=== PATIENT | male | born 1965 | race Caucasian/White ===

== ENCOUNTER 2023-05-29 13:16 | Emergency (ER) | payer OTHER, SELFPAY ==
[2023-05-29 13:17] VITALS: BP 127/79
[2023-05-29 14:14] VITALS: BP 132/93
[2023-05-29 14:15] VITALS: BMI 39.0
[2023-05-29 14:26] LABS: % Basophils 0.2 % (0-2); % Immature Granulocytes 0.4 % (0-0.5); % Lymphocytes 19.5 % (20.5-51.1); % Neutrophils 69.9 % (42.2-75.2); Absolute Lymphocytes 1.1 10^3/uL (1.2-3.4); Absolute Monocytes 0.6 10^3/uL (0.1-0.6); Absolute Neutrophils 3.9 10^3/uL (1.4-6.5); Hematocrit 44.1 % (39.0-52.0); Hemoglobin 15.8 g/dL (13.0-18.0); Mean Corp Hgb Conc. 35.8 g/dL (33.0-37.0); Mean Corpuscular Hgb 32.8 pg (27.0-31.0); Mean Corpuscular Volume 91.5 fL (80.0-94.0); Mean Platelet Volume 9.6 fL (7.4-10.4); Nucleated Red Blood Cells % 0 % (-); Platelet Count 165 10^3/uL (130-400); Red Blood Cell Count 4.82 10^6/uL (4.70-6.10); Red Cell Dist. Width 12.3 % (11.5-14.5); White Blood Cell Count 5.6 10^3/uL (4.8-10.8)
--- NOTE | 2023-05-29 14:37 | ED.GENMED ---
History of Present Illness
<Lorena Whitlock PA-C - Last Filed: 05/29/23 18:31>
General
Chief Complaint: Heart Rate Problem
Source: patient
Exam Limitations: none
Time Seen by Provider: 05/29/23 14:17
Nursing documentation reviewed up to this point in time: agreed with
Travel History
Have you had any contact with someone who has COVID-19?: No
Do you have any symptoms of coronavirus? Fever > 100 degrees, chills, cough, shortness of breath, sore throat, loss of taste or smell, muscle aches, or headache?: No
History of Present Illness
History of Present Illness:
57-year-old male with past medical history of hypertension, hyperlipidemia presenting emergency department today with concerns of atrial fibrillation. Patient states that he was going to his urgent care today thinking he had a sinus infection. He
had sinus congestion as well as generalized URI symptoms. Patient denies any fevers or chills. Patient states that they did an EKG and family was in atrial fibrillation with RVR. Patient has multiple glasses of caffeinated tea daily. Patient
denies any history of sleep apnea. Patient states that he has not been drinking much and feels that he may be dehydrated. Patient states that his mom had COPD and issues with her heart, denies any other family history of cardiac disease. Patient
does not use alcohol or smoke tobacco daily.
Past History
<Lorena Whitlock PA-C - Last Filed: 05/29/23 18:31>
Past History
ED Past Medical History: None
ED Past Surgical History: None
Social History
Living: with family
Employment: Employed
Review of Systems
<Lorena Whitlock PA-C - Last Filed: 05/29/23 18:31>
Review of Systems
All Other Systems: ROS reviewed and negative except as documented in HPI and ROS
Phy Exam
<Lorena Whitlock PA-C - Last Filed: 05/29/23 18:31>
Physical Exam
Physical Exam:
Vitals: patient is tachycardic
General: Patient is well appearing, no acute distress
Skin: Warm and dry, no rashes or lesions
Head: Normocephalic, atraumatic
Cardiac: Irregularly irregular rhythm with no murmurs
Pulm: Normal respiratory effort, mild crackles heard. No wheezes, rales, or rhonchi.
Abdomen: No abdominal tenderness
Neuro: CN II-XII intact. AAOx3. No focal neurologic deficits.
Course
<AUGUSTINE Barksdale Last Filed: 05/29/23 18:31>
Orders/Labs/Results
Orders:
Orders
05/29/23 13:25
Electrocardiogram (*1) Urgent
Reason for Study: Atrial Fibrillation
EKG- Treatment ONCE
05/29/23 14:14
CMP [Comprehensive Metabolic Panel] Urgent
Complete Blood Count/With Diff Urgent
Free T4 Urgent
TSH Reflex To Free T4 Urgent
Comment: TSH REFLEX TO T4 ADDED ON BY FLOOR 2:30PM 05-29-23
05/29/23 14:35
Add On- LAB Urgent
Tests Added?: TSH reflex to T4
05/29/23 14:41
CR Chest - 2 Views Urgent
Comment:
Reason For Exam: shortness of breath
05/29/23 14:53
Diltiazem [Cardizem] 30 mg PO NOW STA
05/29/23 15:40
Diltiazem Sustained Release [Cardizem Sr] 180 mg PO NOW STA
Abnormal Lab Results
05/29/23
14:14
MCH 32.8 H pg
(27.0-31.0)
Absolute Lymphs (auto) 1.1 L 10^3/uL
(1.2-3.4)
Lymphocytes % 19.5 L %
(20.5-51.1)
Monocytes % 10.0 H %
(1.7-9.3)
Sodium 132 L mmol/L
(135-145)
Glucose 152 H mg/dl
(70-99)
AST 98 H U/L
(17-59)
ALT 75 H U/L
(0-50)
TSH (Reflex) 5.07 H uIU/ml
(0.47-4.68)
05/29/23 14:14
05/29/23 14:14
Vital Signs
Initial and Last Documented VS:
Initial Vital Signs
Temp Pulse Resp BP Pulse Ox
97.7 F 73 18 127/79 97
05/29/23 13:17 05/29/23 13:17 05/29/23 13:17 05/29/23 13:17 05/29/23 13:17
Last Documented Vital Signs
Temp Pulse Resp BP Pulse Ox
97.7 F 98 30 138/90 95
05/29/23 13:17 05/29/23 17:30 05/29/23 17:30 05/29/23 16:04 05/29/23 17:30
<Flako Reynolds MD - Last Filed: 05/29/23 18:59>
Orders/Labs/Results
Orders:
Orders
05/29/23 13:25
Electrocardiogram (*1) Urgent
Reason for Study: Atrial Fibrillation
EKG- Treatment ONCE
05/29/23 14:14
CMP [Comprehensive Metabolic Panel] Urgent
Complete Blood Count/With Diff Urgent
Free T4 Urgent
TSH Reflex To Free T4 Urgent
Comment: TSH REFLEX TO T4 ADDED ON BY FLOOR 2:30PM 05-29-23
05/29/23 14:35
Add On- LAB Urgent
Tests Added?: TSH reflex to T4
05/29/23 14:41
CR Chest - 2 Views Urgent
Comment:
Reason For Exam: shortness of breath
05/29/23 14:53
Diltiazem [Cardizem] 30 mg PO NOW STA
05/29/23 15:40
Diltiazem Sustained Release [Cardizem Sr] 180 mg PO NOW STA
Abnormal Lab Results
05/29/23
14:14
MCH 32.8 H pg
(27.0-31.0)
Absolute Lymphs (auto) 1.1 L 10^3/uL
(1.2-3.4)
Lymphocytes % 19.5 L %
(20.5-51.1)
Monocytes % 10.0 H %
(1.7-9.3)
Sodium 132 L mmol/L
(135-145)
Glucose 152 H mg/dl
(70-99)
AST 98 H U/L
(17-59)
ALT 75 H U/L
(0-50)
TSH (Reflex) 5.07 H uIU/ml
(0.47-4.68)
05/29/23 14:14
05/29/23 14:14
Vital Signs
Initial and Last Documented VS:
Initial Vital Signs
Temp Pulse Resp BP Pulse Ox
97.7 F 73 18 127/79 97
05/29/23 13:17 05/29/23 13:17 05/29/23 13:17 05/29/23 13:17 05/29/23 13:17
Last Documented Vital Signs
Temp Pulse Resp BP Pulse Ox
97.7 F 98 30 138/90 95
05/29/23 13:17 05/29/23 17:30 05/29/23 17:30 05/29/23 16:04 05/29/23 17:30
<Lorena Whitlock PA-C - Last Filed: 05/29/23 18:31>
MDM/Problems Addressed
Differential Diagnosis Includes:
ddx include A-fib, atrial flutter, MAT, sinus tachycardia, sinusitis, pneumonia, URI
MDM/Problems Addressed:
atrial fibrillation
Chronic conditions affecting care: HTN
Acute Exacerbation and/or Progression of Chronic Illness: HTN
<Lorena Whitlock PA-C - Last Filed: 05/29/23 18:31>
*Critical Care Note
Total Time (30-74mins, 75-104mins- exclusive of procedures): Not Applicable
<Lorena Whitlock PA-C - Last Filed: 05/29/23 18:31>
Patient Management
Escalation/DeEscalation of care consider admission/obs:
57-year-old male with past medical history of hypertension, hyperlipidemia presenting emergency department today with concerns of atrial fibrillation. Patient states that he was going to his urgent care today thinking he had a sinus infection. They
performed EKG and found A-fib with RVR. Patient denies palpitations, shortness of breath, dizziness. Considering patient asymptomatic, unclear when A-fib be done, not candidate for cardioversion. Patient's blood pressure is stable. While here in
emergency department, he was started on a short acting dose of diltiazem as well as a longer acting dose. His heart rate down to the low 100s. He was originally in the 150s. Patient remained asymptomatic throughout this time. Reviewed patient's
treatment plan with Dr. Emerson. Patient will follow-up with cardiology. [id number] score 1. Will send patient home on Eliquis, Cardizem, as well as amoxicillin to treat sinus infection. Patient stable for discharge.
ED Attending Note
<Lorena Whitlock PA-C - Last Filed: 05/29/23 18:31>
-
Portions of this chart may have been created with voice recognition software.� Occasional wrong word or��sound alike� substitutions may have occurred due to the inherent limitations of voice recognition software.
<Flako Reynolds MD - Last Filed: 05/29/23 18:59>
ED Attending Note
Patient seen and examined by attending physician: Yes
I performed the substantive portion of visit, reviewed & personally made and approve the management plan that is documented in note by myself or JUAN.: Yes
ED Attending Note:
Patient went to urgent care for URI symptoms cough congestion stuffy nose feels like he has a sinus infection. Noted to be in A-fib RVR. Sent for further care. Patient did not know he was in atrial fibrillation. No chest pain or shortness of
breath.
On exam patient is nontoxic in no distress. Tacky. Blood pressure stable. Pulse ox good. Plan is rate control with oral Cardizem and Cardizem CD. Eliquis. No contraindications. We will get a chest x-ray as he has some congestion in the base
of his lungs although doubt florid heart failure. Discussed with cardiology.
Patient is remained stable. Heart rate about 100. No heart failure. Stable for discharge to follow-up. Given prescription for Cardizem 180, Eliquis twice daily with risk explained. Of note I noticed there was no cardiology listed on who to call
for discharge. I did leave a message on his phone number.
Discharge Plan
Departure
Patient Disposition: Home (Routine Discharge)
Date of Disposition: 05/29/23
Time of Disposition: 17:43
Patient with high blood pressure during this ER visit?: Yes
Condition: Good
Discharge Problem:
Atrial fibrillation
Instructions: Atrial Fibrillation (DC), Sinusitis, Adult (DC), Going Home on Blood Thinners , BLOOD PRESSURE
Prescriptions:
New
Eliquis 5 mg tablet
5 mg PO BID Qty: 60 0RF
amoxicillin 875 mg tablet
875 mg PO BID Qty: 12 0RF
diltiazem HCl 180 mg capsule,extended release 24hr
180 mg PO DAILY Qty: 30 0RF
No Action
All Beets Supplement capsule
1 cap PO QPM
NyQuil 7.5-60-30-1,000 mg/30 mL Liquid
30 ml PO HSPRN PRN (Reason: cold symptoms)
Sea Vegetables Supplement 540 mg capsule
3 cap PO QPM
Referrals:
Fabiano Capone Jr., DO [Family Provider] -
Activity Restrictions/Additional Instructions:
We have sent amoxicillin to your pharmacy. Please take 1 tablet twice daily for 5 days.
We have also sent diltiazem to your pharmacy. Please take 1 tablet once daily.
We sent Eliquis to your pharmacy. You have been given a discount code. Please take 1 tablet twice daily.
Please call the cardiology office to schedule an appointment. Please tell them you are seen here for new onset atrial fibrillation.
Please return emergency department for chest pain, shortness of breath, dizziness, or other concerning signs or symptoms.
Interventions
Interventions:
*Risk Screen - Suicide Last Done: 05/29/23 13:17
*General Assessment Last Done: 05/29/23 14:15
*Neglect/Abuse Screening Last Done: 05/29/23 13:17
ED- Fall Risk Assessment Last Done: 05/29/23 14:15
*ED COVID-19 Vaccine History Last Done: 05/29/23 13:17
*Nursing Disposition Last Done: 05/29/23 17:53
ED- Cardiac Assessment Last Done: 05/29/23 14:15
ED- Pulmonary Assessment Last Done: 05/29/23 14:15
Discharge Date and Time
Discharge Date/Time: 05/29/23 17:55
Print Language: BELARUSIAN
[2023-05-29 14:44] LABS: ALT (SGPT) 75 U/L (0-50); AST (SGOT) 98 U/L (17-59); Albumin 4.4 g/dl (3.5-5.0); Alkaline Phosphatase 66 U/L (38-126); Blood Urea Nitrogen 17 mg/dl (9-20); Calcium 8.6 mg/dl (8.4-10.2); Carbon Dioxide 25 mmol/L (22-30); Chloride 98 mmol/L (98-107); Estimated Creatinine Clearance 85 ml/min; Glucose 152 mg/dl (70-99); Potassium 3.7 mmol/L (3.5-5.1); Sodium 132 mmol/L (135-145); Total Bilirubin 1.2 mg/dl (0.2-1.3); Total Protein 7.3 g/dl (6.3-8.2); eGFR > 60.00
[2023-05-29 15:00] VITALS: BP 156/98
[2023-05-29 15:43] LABS: TSH Reflex To Free T4 5.07 uIU/ml (0.47-4.68)
[2023-05-29] MEDS: CARDIZEM 30 MG PO (15:55)
[2023-05-29 16:00] VITALS: BP 138/90
[2023-05-29] MEDS: CARDIZEM SR 180 MG PO (16:04)
[2023-05-29 16:08] LABS: Free T4 1.09 ng/dl (0.78-2.19)
== END 2023-05-29 17:55 | disposition home or self-care (01) ==
LOC: EMR 13:16
PROVIDERS: Emergency Medicine; EMERGENCY PHYSICIAN Emergency Medicine; FAMILY PHYSICIAN Family Medicine
DX: I48.91 Unspecified atrial fibrillation (principal); R09.81 Nasal congestion; R05.9 Cough, unspecified; R09.89 Other specified symptoms and signs involving the circulatory and respiratory systems; I10 Essential (primary) hypertension; E78.5 Hyperlipidemia, unspecified
CPT/HCPCS: 99284; 71046; 80053; 84439; 84443; 85025; 93005

== ENCOUNTER 2023-06-10 12:20 | Emergency (ER) | payer OTHER, SELFPAY ==
[2023-06-10 12:23] VITALS: BP 182/106
--- NOTE | 2023-06-10 12:47 | ED.GENMED ---
History of Present Illness
General
Chief Complaint: Head Injury
Source: patient
Exam Limitations: none
Time Seen by Provider: 06/10/23 12:29
Nursing documentation reviewed up to this point in time: agreed with
Travel History
Have you had any contact with someone who has COVID-19?: No
Do you have any symptoms of coronavirus? Fever > 100 degrees, chills, cough, shortness of breath, sore throat, loss of taste or smell, muscle aches, or headache?: No
History of Present Illness
History of Present Illness:
Patient is a 57-year-old male on EliBawteis for A-fib who hit his head on his desk this morning approximate 1030. He denies any loss of consciousness or headache but since he is on blood thinners presents to the ER for evaluation. He denies any other
injuries and has no complaints.
Past History
Past History
ED Past Medical History: None
ED Past Surgical History: None
Social History
Living: with family
Employment: Employed
Review of Systems
Review of Systems
Allergies reviewed?: Yes
All Other Systems: ROS reviewed and negative except as documented in HPI and ROS
Constitutional: Denies fever, fatigue or chills
EENT: Reports no symptoms
Respiratory: Reports no symptoms
Cardiac: Reports no symptoms
ABD/GI: Reports no symptoms; Denies nausea or vomiting
Musculoskeletal: Reports no symptoms and muscle pain; Denies neck pain
Skin: Reports no symptoms
Neurological: Denies headache ( no LOC )
Hematologic/Lymphatic: Reports no symptoms
Psychiatric: Reports no symptoms
Phy Exam
General Physical Exam
General Presentation: no apparent distress
General age: appears stated age
General Skin: warm and dry
General Habitus: normal
General Mental: alert
General Hydration: appears well hydrated
Neurological Exam
Neurological Exam: alert and oriented x3
Li Coma Scale
Eye Opening: Spontaneous
Verbal Response: Oriented
Motor Response: Obeys Commands
GCS Total Score: 15
Musculoskeletal Exam
Musculoskeletal Exam: other (normal inspection to head no injury )
Skin Exam
Skin Exam: normal color and warm/dry
Psychiatric Exam
Psychiatric Exam: normal mood/affect
Course
Orders/Labs/Results
Orders:
Orders
06/10/23 12:45
CT Head W/o Iv Contrast Urgent
Comment:
Reason For Exam: head injury
Vital Signs
Initial and Last Documented VS:
Initial Vital Signs
Temp Pulse Resp BP Pulse Ox
97.6 F 76 20 182/106 95
06/10/23 12:23 06/10/23 12:23 06/10/23 12:23 06/10/23 12:23 06/10/23 12:23
Last Documented Vital Signs
Temp Pulse Resp BP Pulse Ox
97.6 F 76 20 128/81 95
06/10/23 12:23 06/10/23 12:23 06/10/23 12:23 06/10/23 13:24 06/10/23 12:23
MDM/Problems Addressed
Differential Diagnosis Includes:
Not limited to head injury, less likely intracranial hemorrhage
MDM/Problems Addressed:
Patient is a 57 show male who hit his head on Eliquis no headache no complaints no obvious injury health will scan and if negative plan for discharge home. pt in no distress
Chronic conditions affecting care:
on eliquis for afib
*Radiology
Radiology exam reviewed: radiology read reviewed
*Pulse Oximetry
Patient hypoxic: no
*Critical Care Note
Total Time (30-74mins, 75-104mins- exclusive of procedures): Not Applicable
ED Attending Note
-
Portions of this chart may have been created with voice recognition software.� Occasional wrong word or��sound alike� substitutions may have occurred due to the inherent limitations of voice recognition software.
Discharge Plan
Departure
Patient Disposition: Home (Routine Discharge)
Date of Disposition: 06/10/23
Time of Disposition: 15:04
Patient with high blood pressure during this ER visit?: Yes
Condition: Fair
Covid-19: Not Applicable
Discharge Problem:
Head injury
Instructions: Head Injury in Adults (DC)
Prescriptions:
No Action
All Beets Supplement capsule
1 cap PO QPM
NyQuil 7.5-60-30-1,000 mg/30 mL Liquid
30 ml PO HSPRN PRN (Reason: cold symptoms)
Sea Vegetables Supplement 540 mg capsule
3 cap PO QPM
Eliquis 5 mg tablet
5 mg PO BID Qty: 60 0RF
amoxicillin 875 mg tablet
875 mg PO BID Qty: 12 0RF
diltiazem HCl 180 mg capsule,extended release 24hr
180 mg PO DAILY Qty: 30 0RF
Referrals:
NONE,* [Family Provider] -
Activity Restrictions/Additional Instructions:
Return if any worsening of symptoms including headache nausea vomiting or any further concerns.
Interventions
Interventions:
*Risk Screen - Suicide Last Done: 06/10/23 12:58
*General Assessment Last Done: 06/10/23 12:58
*Neglect/Abuse Screening Last Done: 06/10/23 12:58
*ED COVID-19 Vaccine History Last Done: 06/10/23 12:23
ED- Neurological Assessment Last Done: 06/10/23 13:10
ED-Skin Assessment Last Done: 06/10/23 13:10
Discharge Date and Time
Print Language: ROMANIAN
[2023-06-10 13:24] VITALS: BP 128/81
== END 2023-06-10 15:19 | disposition home or self-care (01) ==
LOC: EMR 12:20
PROVIDERS: EMERGENCY PHYSICIAN Emergency Medicine
DX: S09.90XA Unspecified injury of head, initial encounter (principal); W22.8XXA Striking against or struck by other objects, initial encounter; I48.91 Unspecified atrial fibrillation; I10 Essential (primary) hypertension; Z79.01 Long term (current) use of anticoagulants
CPT/HCPCS: 99284; 70450

== ENCOUNTER → 2023-06-23 07:05 | Day surgery (SDC) | payer OTHER, SELFPAY ==
--- NOTE | 2023-06-23 08:37 | ITS.CL.CARDI ---
[facility] - Cardioversion
Cardioversion
Procedure Report:
Date of Procedure:
Procedure: Cardioversion
Indication: Symptomatic atrial fibrillation
Performing Physician: Fransisco Jc MD
Technique: The patient was brought to the holding area. Signed informed consent was obtained. A time out was called and performed. The patient was anesthetized by the anesthesia service. Anticoagulation status was reviewed and appropriate. R2 pads
were placed anteriorly and posteriorly. A 200 J synchronized biphasic shock and 360J shock failed, then a second 360J shock restored normal sinus rhythm without significant bradycardia. There were no complications.
Conclusion: Uncomplicated cardioversion from atrial fibrillation to sinus rhythm.
Recommendation: Routine post cardioversion care. Continue correction anticoagulation.
[2023-06-23 08:58] VITALS: BMI 38.0
== END ==
LOC: CATH 07:05
PROVIDERS: ATTENDING PHYSICIAN Internal Medicine Cardiovascular Disease; FAMILY PHYSICIAN Family Medicine; OTHER PHYSICIAN Internal Medicine Cardiovascular Disease
DX: I48.0 Paroxysmal atrial fibrillation (principal); I08.1 Rheumatic disorders of both mitral and tricuspid valves; I10 Essential (primary) hypertension; Z87.891 Personal history of nicotine dependence; E66.9 Obesity, unspecified; Z68.36 Body mass index [BMI] 36.0-36.9, adult; Z79.01 Long term (current) use of anticoagulants
CPT/HCPCS: 93312; 93320; 93325; 92960; 93005

== ENCOUNTER → 2023-08-19 | Outpatient (REF) | payer OTHER, SELFPAY | LOC: DHSLP | PROVIDERS: ATTENDING PHYSICIAN Internal Medicine Cardiovascular Disease; FAMILY PHYSICIAN Family Medicine | DX: G47.33 Obstructive sleep apnea (adult) (pediatric) (principal) | CPT/HCPCS: 95800 ==

== ENCOUNTER → 2023-09-01 07:21 | Day surgery (SDC) | payer OTHER, SELFPAY ==
--- NOTE | 2023-09-01 09:45 | ITS.CL.CARDI ---
[employer] - Cardioversion
Cardioversion
Procedure Report:
Date of Procedure: September 01 2023
Procedure: Cardioversion
Indication: Symptomatic atrial fibrillation
Performing Physician: Victor M Echols DO, FACC
Technique: The patient was brought to the holding area. Signed informed consent was obtained. A time out was called and performed. The patient was anesthetized by the anesthesia service. Anticoagulation status was reviewed and appropriate. R2 pads
were placed anteriorly and posteriorly. A 250 J synchronized biphasic shock restored normal sinus rhythm without significant bradycardia. There were no complications.
Conclusion: Uncomplicated cardioversion from atrial fibrillation to sinus rhythm.
Recommendation: Routine post cardioversion care. Continue terminal gauger supervisor anticoagulation.
== END ==
LOC: CATH 07:21
PROVIDERS: ATTENDING PHYSICIAN Nuclear Medicine Nuclear Cardiology; FAMILY PHYSICIAN Family Medicine
DX: I48.0 Paroxysmal atrial fibrillation (principal); I10 Essential (primary) hypertension; E66.9 Obesity, unspecified; Z68.37 Body mass index [BMI] 37.0-37.9, adult; Z87.891 Personal history of nicotine dependence; Z79.01 Long term (current) use of anticoagulants
CPT/HCPCS: 92960; 93005

== ENCOUNTER 2023-10-28 05:54 | Day surgery (SDC) | payer OTHER, SELFPAY ==
[2023-10-08 12:53] VITALS: BMI 36.8
[2023-10-08 14:10] LABS: % Basophils 0.8 % (0-2); % Eosinophils 3.1 % (0-6); % Immature Granulocytes 0.5 % (0-0.5); % Lymphocytes 23.8 % (20.5-51.1); % Monocytes 11.2 % (1.7-9.3); % Neutrophils 60.6 % (42.2-75.2); Absolute Basophils 0.1 10^3/uL (0-0.2); Absolute Eosinophils 0.2 10^3/uL (0-0.7); Absolute Lymphocytes 1.8 10^3/uL (1.2-3.4); Absolute Monocytes 0.8 10^3/uL (0.1-0.6); Absolute Neutrophils 4.5 10^3/uL (1.4-6.5); Hematocrit 43.4 % (39.0-52.0); Hemoglobin 15.5 g/dL (13.0-18.0); Mean Corp Hgb Conc. 35.7 g/dL (33.0-37.0); Mean Corpuscular Hgb 32.6 pg (27.0-31.0); Mean Corpuscular Volume 91.4 fL (80.0-94.0); Mean Platelet Volume 10.1 fL (7.4-10.4); Nucleated Red Blood Cells % 0 % (-); Platelet Count 224 10^3/uL (130-400); Red Blood Cell Count 4.75 10^6/uL (4.70-6.10); Red Cell Dist. Width 12.4 % (11.5-14.5); White Blood Cell Count 7.4 10^3/uL (4.8-10.8)
[2023-10-08 14:22] LABS: INR 1.17
[2023-10-08 14:28] LABS: ALT (SGPT) 39 U/L (0-50); AST (SGOT) 35 U/L (17-59); Albumin 4.7 g/dl (3.5-5.0); Alkaline Phosphatase 75 U/L (38-126); Blood Urea Nitrogen 12 mg/dl (9-20); Calcium 9.9 mg/dl (8.4-10.2); Carbon Dioxide 27 mmol/L (22-30); Chloride 106 mmol/L (98-107); Estimated Creatinine Clearance 95 ml/min; Glucose 109 mg/dl (70-99); Potassium 4.5 mmol/L (3.5-5.1); Sodium 140 mmol/L (135-145); Total Bilirubin 0.5 mg/dl (0.2-1.3); Total Protein 7.1 g/dl (6.3-8.2); eGFR > 60.00
[2023-10-28] VITALS (10 sets, daily range): BP systolic 112–149; BP diastolic 66–98; BMI 35.7
[2023-10-28 08:31] LABS: ACT-LR - POC 324 Seconds (116-155)
[2023-10-28 08:47] LABS: ACT-LR - POC 374 Seconds (116-155)
[2023-10-28 09:14] LABS: ACT-LR - POC 314 Seconds (116-155)
[2023-10-28 09:45] LABS: ACT-LR - POC 321 Seconds (116-155)
[2023-10-28 10:05] LABS: ACT-LR - POC 157 Seconds (116-155)
--- NOTE | 2023-10-28 10:14 | ITS.CL.ABL ---
[employer] Machine Operator - Ablation
Ablation
Procedure Report:
Primary Care Physician: Fabiano Capone MD
Procedure Date: 10/28/2023
Patient History:
Patient is a pleasant 58-year-old male with a past medical history significant for hypertension, obesity, sleep apnea, persistent symptomatic atrial fibrillation with early recurrence following cardioversion.
See H&P for complete details.
Indication:
Symptomatic persistent atrial fibrillation
Early recurrence following cardioversion
Arrhythmia Specific History:
Prior Medical Therapies for Rate and Rhythm Control:
[ ] Beta-ar
X Calcium channel-ar
[ ] Amiodarone
[ ] Dronederone
[ ] Sotalol
[ ] Flecainide
[ ] Dofetilide
[ ] Options limited by bradycardia
[ ] Options limited by comorbid renal disease
Prior Procedural Therapies for AF/AFL:
X Cardioversion
[ ] Pulmonary Vein Isolation
[ ] Posterior Wall Isolation
[ ] Additional lines (Specify)
[ ] Surgical Jones-MAZE or PVI (Specify)
Procedure Performed:
X AF ablation procedure (19650) -- includes LA/CS pacing, trans-septal, 3D mapping, + ICE
[ ] +IV drug (64364)
[ ] +Other Arrhythmia (31005)
X +Other AF Line/ablation (14311) - posterior wall isolation
Risks and expected recovery has been explained in detail. Alternative options have been explored, and in a shared-decision making fashion we have decided that this was the most appropriate procedure.
Method
NPO status confirmed. Grounding pad applied. Defibrillator pads applied. Continuous surface ECG, pulse oximetry, and blood pressure were monitored. Procedure was performed under general anesthesia, with anesthesia services.
Both groins were clipped, prepped with Chloraprep, and draped in sterile fashion. Time out was called. Local anesthesia administered with bupivacaine. The right and left femoral veins were accessed for catheter placement, using ultrasound guidance,
micro-puncture needle/wire, and modified seldinger technique. 3 sheaths were placed. The following catheters were used:
[ ] Tacticath SE (D/F Curve) ablation catheter
X Viewflex 9Fr ICE catheter
X Inquiry decapolar 6Fr diagnostic catheter
[ ] CRD Hex 6Fr
[ ] Arctic Front Advance Cryoballoon ([ ]28mm[ ]23mm)
[ ] Achieve Advance mapping catheter ([ ]15mm[ ]20mm)
X FlexCath Contour 10 Fr with PulseSelect PFA Catheter
X Advisor HD Grid Mapping Catheter, SE
[ ] Acuson AcuNav 8 Fr ICE catheter
[ ]Other: [ ]
Intracardiac ultrasound (ICE) was carefully advanced into the right atrium to guide sheath placement over a J-wire, catheter placement, guide trans-septal puncture, identify potential complications, identify anatomic structures and ensure proper
contact between ablation catheter and tissue. A trace pericardial effusion was noted posterior portion of LV noted at the beginning of the procedure which remained unchanged throughout and at completion of procedure.
Heparin was given prior to trans-septal puncture. Heparin was given to achieve and maintain a target ACT of 300-400 seconds throughout the procedure.
Trans-septal access was performed under ICE guidance. The trans-septal puncture was performed with a SafeSept wire through a Brockenbrough needle assembly through the steerable sheath. The wire was visualized as it entered the LSPV and system
advanced under ICE guidance and fluoroscopy into the LA. The Brockenbrough needle assembly, SafeSept wire and sheath dilator were removed under negative pressure. LA pressure was measured and recorded.
ICE and 3D mapping was performed to identify relevant cardiac structures. A careful 3D map was created to assess for regions of low-voltage and abnormal electrogram signals using HD grid mapping catheter and PulseSelect catheter. Additional mapping
was performed as outlined below.
Prior to ablation, glycopyrrolate was provided. PulseSelect catheter was advanced over J-wire to the ostium of each vein. Pulmonary vein isolation was performed with ostial and antral lesions in a circumferential manner. Contact was visualized via
EAM, ICE, fluoroscopy, and EGM signals. Posterior wall isolation was performed by anchoring the J-wire within the pulmonary vein and placing the PulseSelect catheter in contact with the posterior wall as visualized by aforementioned methods. During
ablation, patient was noted to enter into a regular concentric activated narrow complex tachycardia consistent with flutter. Entrainment demonstrated earliest activation at the proximal CS. Following completion of ablation lesions, sinus rhythm
was restored with a 200J synchronized DCCV and a post-ablation voltage/activation map was performed in sinus rhythm. Entrance and exit block were confirmed for each vein and the posterior wall.
Catheter and sheath were removed from the left atrium and post-ablation intracardiac echo evaluation was consistent with pre-ablation with no changes and no pericardial effusion and there is no left atrial thrombus or left ventricle thrombus seen.
Electrophysiology study was performed. No arrhythmia was induced with burst pacing, single lecture stimuli or atrial flutter protocol with double extrastimuli. No recurrence of atrial flutter noted during procedure. Hemostasis was obtained with
Vascade for each sheath and with manual pressure. Protamine was used for reversal.
Estimated Blood Loss
5 mL
Complications
None
Fluoroscopy: 3.2 minutes; 28.2 mGy; DAP 3.95
Baseline Intervals:
Rhythm: Atrial fibrillation
QRS: 101 ms
QT: 335 ms
QTc: 479 ms
Post-Procedure Intervals:
RI: 196 ms
QRS: 102 ms
QT: 409 ms
QTc: 476 ms
AVWB: 390 ms
AVNERP: 600/240 ms
AERP: 600/200 ms
Recommendations
- Bedrest with straight-leg precautions as ordered
- Anticipate same day discharge if patient meeting clinical metrics
- Resume home medications as indicated
- Ok to resume anticoagulation tonight if patient and groin sites stable
- PPI daily for 30 days
- Plan for follow-up in office in 4-6 weeks
Satnam Lopez DO
Clinical Cardiac Form Layer
cc: Fabiano Capone MD
--- NOTE | 2023-10-28 12:35 | W.PN.UPDATE ---
Update Note
Progress Note Update
Pt seen post PFA. Right FV w/vascade closure, no ht/bleeding, non tender. OOB ambulating, urinating without difficulty. Post EKG NSR 80s, no acute changes. Resume eliquis tonight. Continue other meds as before. 30 day post PFA protonix ordered.
Followup with Dr. Lopez arranged. Home later today if groin site/tele remain stable.
== END 2023-10-28 13:10 | disposition home or self-care (01) ==
LOC: CATH 05:54
PROVIDERS: ATTENDING PHYSICIAN Internal Medicine Cardiovascular Disease; FAMILY PHYSICIAN Family Medicine
DX: I48.19 Other persistent atrial fibrillation (principal); I10 Essential (primary) hypertension; R00.2 Palpitations; R06.02 Shortness of breath; Z79.01 Long term (current) use of anticoagulants; E66.9 Obesity, unspecified; Z68.36 Body mass index [BMI] 36.0-36.9, adult; Z87.891 Personal history of nicotine dependence; G47.33 Obstructive sleep apnea (adult) (pediatric)
CPT/HCPCS: C1760; C1732; C1894; C1733; C1769; 36415; 75572; 76937; 80053; 83735; 85025; 85347; 85610; 86850; 86900; 86901; 93005; 93656; 93657; Q9967

== ENCOUNTER → 2024-06-17 07:27 | Outpatient (REF) | payer OTHER, SELFPAY | LOC: RCS 07:27 | PROVIDERS: ATTENDING PHYSICIAN Internal Medicine Cardiovascular Disease; FAMILY PHYSICIAN Family Medicine | DX: R06.02 Shortness of breath (principal) | CPT/HCPCS: 93306 ==

== ENCOUNTER → 2024-11-15 12:33 | Outpatient (REF) | payer OTHER, SELFPAY | LOC: DHSLP 12:33 | PROVIDERS: ATTENDING PHYSICIAN Internal Medicine; FAMILY PHYSICIAN Family Medicine | DX: G47.33 Obstructive sleep apnea (adult) (pediatric) (principal) | CPT/HCPCS: 95800 ==

== ENCOUNTER 2025-01-12 00:58 | Emergency (ER) | payer OTHER, SELFPAY ==
[2025-01-12 01:02] VITALS: BP 161/100
--- NOTE | 2025-01-12 01:20 | ED.SKININJ ---
HPI-Injury
General
Chief Complaint: Bite
Source: patient
Exam Limitations: none
Time Seen by Provider: 01/12/25 01:15
History of Present Illness-Injury
Initial Injury comments:
See MDM
Past History
Past History
ED Past Medical History: None
ED Past Surgical History: None
Social History
Living: with family
Employment: Employed
Phy Exam
Physical Exam
Physical Exam:
See MDM
Course
Orders/Labs/Results
Orders:
Orders
01/12/25 01:20
Tetanus/Diphth/Acelpertussis [Adacel] 0.5 ml IM .ONCE ONE
Vital Signs
Initial and Last Documented VS:
Initial Vital Signs
Temp Pulse Resp BP Pulse Ox
97.8 F 77 20 161/100 99
01/12/25 01:02 01/12/25 01:02 01/12/25 01:02 01/12/25 01:02 01/12/25 01:02
Last Documented Vital Signs
Temp Pulse Resp BP Pulse Ox
97.8 F 77 20 161/100 99
01/12/25 01:02 01/12/25 01:02 01/12/25 01:02 01/12/25 01:02 01/12/25 01:23
MDM/Problems Addressed
Differential Diagnosis Includes:
Note:
CHIEF COMPLAINT(S)
Mouse bite to the arm.
HISTORY OF PRESENT ILLNESS
The patient is a 59-year-old male who presents with a complaint of being bitten by a mouse. 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 While walking through, he encountered a live mouse that bit him. The patient
expressed concern about potential rabies infection due to the bite. He reported dry skin and burning sensation around the hairline, which he described as similar to the experience of having dry skin around the hairline. The patient is uncertain if
his tetanus vaccination is up-to-date and notes seeing his regular doctor tomorrow to address these concerns. He mentioned that if he receives a tetanus shot today, it might not be necessary to see his doctor tomorrow. The patient also reports a
sensation of burning in the arm where he was bitten, though he acknowledges this may not be related to the mouse bite.
PHYSICAL EXAM
General: Alert, no acute distress.
Skin: Warm, dry. Extremely small pin needle type superficial to the palmar aspect of right index finger
Head: Normocephalic, atraumatic
Neck: Appears supple, trachea midline.
Eyes, Ears, Nose, Mouth, and Throat: Moist mucous membranes
Cardiovascular: No signs of cyanosis
Respiratory: Respirations are non-labored.
Abdomen: Non-distended
Musculoskeletal: No deformities
Neurological: No focal neurological deficit observed.
Psychiatric: Cooperative, appropriate mood and affect.
PLAN
The patient was educated on the low risk of rabies transmission from the mouse bite and advised to monitor for any signs of infection or other concerning symptoms at the bite site. A tetanus booster was administered. Follow-up with his regular
healthcare provider was encouraged to address any lingering concerns, particularly if symptoms persist.
SUMMARY OF ENCOUNTER
The patient presented with concerns about a potential rabies infection from a mouse bite and requested a tetanus booster. Due to the exceedingly low likelihood of rabies transmission from a mouse, the decision was made not to initiate rabies
prophylaxis. The patient was offered a tetanus vaccine to cover any gap in vaccination status.
DISPOSITION
Discharge with tetanus vaccination.
MEDICATION RECONCILIATION
Administered tetanus booster during the visit.
MEDICAL DECISION MAKING
- Complexity of Data Reviewed: Chronic conditions affecting care not mentioned. Differential Diagnosis includes, in no particular order and is not limited to:
- Localized skin infection
- Non-infectious dermatitis due to dry skin
- Anxiety-related symptoms
- Allergic reaction to bite
- Tetanus (due to bite)
- Rabies exposure (highly unlikely)
- Paresthesia from anxiety
- Neuropathic pain
- Contact dermatitis
- Insect bite reaction
- Data:
Category 1:
History and physical examination findings were reviewed.
- Risk:
Prescription medication was not prescribed as the patient received an in-visit tetanus booster.
DIAGNOSIS
- Mouse bite, ICD-10 Code: W55.89XA (Contact with other mammals, initial encounter).
- Tetanus prophylaxis, ICD-10 Code: Z23 (Encounter for immunization).
Disposition:
SUMMARY OF ENCOUNTER
The patient presented with a bite to his right index finger from a mouse, expressing concern primarily about rabies transmission. We discussed the extremely low risk of rabies from small rodents, such as mice, and mutually decided not to initiate
rabies vaccination. The patient is comfortable with this approach and understands the minimal risk involved.
DISPOSITION
Discharge.
PATIENT EDUCATION AND COUNSELING
The patient was educated on the low risk of rabies transmission from a mouse bite and instructed to monitor the bite site for any signs of infection, such as redness, swelling, or increased pain. The decision against rabies prophylaxis was discussed
thoroughly, and the patient was made aware of when to seek further medical attention.
MEDICAL DECISION MAKING
- Complexity of Data Reviewed: No chronic conditions affecting care were mentioned. Relevant differential diagnoses include localized skin infection, non-infectious dermatitis due to dry skin, anxiety-related symptoms, allergic reaction to bite,
tetanus (due to bite), rabies exposure (highly unlikely), paresthesia from anxiety, neuropathic pain, contact dermatitis, and insect bite reaction.
- Risk: Patient was reassured of the low risk associated with the mouse bite, and the decision was made for outpatient management without rabies prophylaxis given the low transmission risk.
DIAGNOSIS
- Mouse bite, ICD-10 Code: W55.89XA (Contact with other mammals, initial encounter).
*Pulse Oximetry
SaO2: 99
Oxygen Mode of Delivery: Room air
Patient hypoxic: no
*Critical Care Note
Total Time (30-74mins, 75-104mins- exclusive of procedures): Not Applicable
ED Attending Note
-
Portions of this chart may have been created with voice recognition software.� Occasional wrong word or��sound alike� substitutions may have occurred due to the inherent limitations of voice recognition software.
Discharge Plan
Departure
Patient Disposition: Home (Routine Discharge)
Date of Disposition: 01/12/25
Time of Disposition: 01:21
Patient with high blood pressure during this ER visit?: Yes
Discharge Problem:
Bitten by mouse
Instructions: Animal Bites (DC), BLOOD PRESSURE
Prescriptions:
No Action
Eliquis 5 mg tablet
5 mg PO BID Qty: 60 0RF
diltiazem HCl 180 mg capsule,extended release 24hr
180 mg PO DAILY Qty: 30 0RF
diltiazem HCl 60 mg Capsule,Extended Release 12 Hr
60 mg PO QPM
Beets Vitamin
1 tab PO DAILY
Sea Vegetable Vitamin
2 tab PO QPM
pantoprazole 40 mg tablet,delayed release (DR/EC)
40 mg PO DAILY Qty: 30 0RF
Referrals:
Fabiano Capone Jr., DO [Family Provider, Internal Medicine]
Activity Restrictions/Additional Instructions:
Please return for any worsening symptoms.
You may return at any time if you have further concerns.
Please follow up with your doctor at the first available appointment, preferably this week.
Thank you for choosing [facility].
Interventions
Interventions:
*Risk Screen - Suicide Last Done: 01/12/25 01:06
*General Assessment Last Done: 01/12/25 01:06
*Neglect/Abuse Screening Last Done: 01/12/25 01:06
*ED- Fall Risk Assessment Last Done: 01/12/25 01:06
*ED COVID-19 Vaccine History Last Done: 01/12/25 01:06
*ED Influenza Vaccine History Last Done: 01/12/25 01:06
Discharge Date and Time
Print Language: [id number]
[2025-01-12] MEDS: ADACEL 0.5 ML IM (01:26)
== END 2025-01-12 01:32 | disposition home or self-care (01) ==
LOC: EMR 00:58
PROVIDERS: EMERGENCY PHYSICIAN Student in an Organized Health Care Education/Training Program; FAMILY PHYSICIAN Family Medicine
DX: S61.250A Open bite of right index finger without damage to nail, initial encounter (principal); W53.01XA Bitten by mouse, initial encounter; Y92.009 Unspecified place in unspecified non-institutional (private) residence as the place of occurrence of the external cause; Y99.0 Civilian activity done for income or pay; Z23 Encounter for immunization
CPT/HCPCS: 99282; 90471; 90715